=== PATIENT | female | born 2000 | race Caucasian/White ===

== ENCOUNTER 2024-12-29 05:40 | Day surgery (SDC) | payer OTHER ==
[~2024-12-29] VITALS: Ht 170.2 cm; Wt 100.0 kg
--- NOTE | ~2024-12-29 | OR ---
[facility] [address] [place] [address] Draft DATE OF OPERATION: 12/29/2024 SURGEON: Chapito Davis MD PREOPERATIVE DIAGNOSIS: Cervical intraepithelial neoplasia 3. POSTOPERATIVE DIAGNOSIS: Cervical intraepithelial neoplasia 3. PROCEDURE: Loop electrosurgical excision procedure, endocervical curettage. FINDINGS: Cervix with aceto-white epithelium after acetic acid application. ANESTHESIA: MAC plus local. MANUFACTURING INTERN: None. IV FLUIDS: 700 mL crystalloid. ESTIMATED BLOOD LOSS: 5 mL. URINE OUTPUT: 150 mL of urine. DRAINS: None. SPECIMENS: LEEP specimen and ECC specimen. COUNTS: Correct x2. PATIENT NAME: YOHANA LARSEN OPERATIVE REPORT DATE OF : 00 REPORT #: [id number] PHYSICIAN: CHAPITO DAVIS MD PCP: DONELL EVERETT MD REPORT IS CONFIDENTIAL AND NOT TO BE RELEASED WITHOUT AUTHORIZATION [facility] [address] [place] [address] Draft COMPLICATIONS: None apparent. TECHNIQUE IN DETAIL: With informed consent and negative hCG, the patient was taken to the operating room where she was given IV sedation. Her lower extremities were placed in low lithotomy position using short fin stirrups. She was prepped and draped in sterile fashion and time-out was performed per protocol. An insulated Floyd speculum was placed into the vagina to visualize the cervix. The patient was then given 0.25% Marcaine with epinephrine as a paracervical block. A total of 10 mL were injected circumferentially around the cervix. Vigorous acetic acid was then applied. Colposcope was used to visualize the cervix and identify all areas of aceto-white epithelium and the entire transformation zone. With the loop electrocautery at a power setting of 60 blunt cut, the LEEP specimen was removed. Endocervical curettage was performed as well. The bed of the cervix and the periphery of the ectocervical specimen were cauterized with the ball electrode. Good hemostasis was noted. Monsel's solution was placed. The speculum was removed. The patient underwent sterile I and O catheterization of her bladder for the above mentioned amount. DISPOSITION: The patient was taken to the recovery room in stable condition. Chapito Davis MD BB/MODL /[id number] Copies: ~ PATIENT NAME: YOHANA LARSEN OPERATIVE REPORT DATE OF : 00 REPORT #: [id number] PHYSICIAN: CHAPITO DAVIS MD PCP: DONELL EVERETT MD REPORT IS CONFIDENTIAL AND NOT TO BE RELEASED WITHOUT AUTHORIZATION
[~2024-12-29 05:40] MED LIST: ASHLYNA 0.15-01 EACH PO; LACTATED RINGER'S 1,000 ML IV SCH; SERTRALINE HCL100 MG PO
[2024-12-29 06:02] VITALS: BP 137/91
[2024-12-29] MEDS ORDERED: IBLOOD GLUCOSE TEST STRIP 1 EA TEST VI PRN ×2 (07:00→08:00)
[2024-12-29] MEDS ORDERED: LIDOCAINE HCL 1% 5 ML SDV INJ ONE (07:00)
[2024-12-29] MEDS ORDERED: DEXAMETHASONE SOD PHOS 4 MG/ML VIAL ONE (07:13)
[2024-12-29] MEDS ORDERED: MIDAZOLAM HCL 2 MG/2 ML VIAL ONE (07:13)
[2024-12-29] MEDS ORDERED: ACETAMINOPHEN 1,000 MG/100 ML VIAL ONE (07:13)
[2024-12-29] MEDS ORDERED: LIDOCAINE HCL 2% 5 ML SDV ONE (07:13)
[2024-12-29] MEDS ORDERED: fentaNYL citrate 100 MCG/2 ML VIAL ONE (07:13)
[2024-12-29] MEDS ORDERED: PROCHLORPERAZINE EDISYLATE 10 MG/2 ML VIAL IV PRN (08:00)
[2024-12-29] MEDS ORDERED: HYDROmorphone HCL 1 MG/ML SYR IV PRN (08:00)
[2024-12-29] MEDS ORDERED: fentaNYL citrate 50 MCG/ML SDV IV PRN (08:00)
[2024-12-29] MEDS ORDERED: NALOXONE HCL 0.4 MG SYR IV PRN (08:00)
[2024-12-29] MEDS ORDERED: KETOROLAC TROMETHAMINE 30 MG/ML VIAL ONE (08:11)
--- NOTE | 2024-12-29 08:23 | NUR ---
12/29/24 0823 Alba Freeman 0817: PT ARRIVES TO PACU AWAKE. SHE DENIES PAIN OR NAUEA. REPORT RECEIEVED FROM CAR REPAIR SUPERVISOR AND TYPESETTER PERFORATOR OPERATOR. EDE 0820: PT IS ABLE TO KEEP HER EYES OPEN.
[2024-12-29 08:45] VITALS: BP 107/65
[2024-12-29] MEDS ORDERED: HYDROCODONE/ACETA 5/325 TAB PO PRN (09:00)
--- NOTE | 2025-01-02 15:48 | PATH ---
[facility] [address] [place], [place] [address] Signed SPECIMEN(S): A ENDOCERVICAL CURETTINGS SPECIMEN(S): B LEEP SPECIMEN SOURCE: A. ENDOCERVICAL CURETTINGS B. LEEP CLINICAL HISTORY: 0 dysplasia of cervix FINAL PATHOLOGIC DIAGNOSIS: A. Endocervical curettings: - Benign endocervical epithelium, negative for dysplasia. - Mucoinflammatory debris. B. LEEP: - High-grade squamous intraepithelial lesion (CIN2-CIN3) involving of the blue-inked (endocervical) margin. D[facility] MICROSCOPIC EXAMINATION: Histologic sections of all submitted blocks are examined by light microscopy. These findings, together with the gross examination, support the pathologic diagnosis. GROSS DESCRIPTION: A. The specimen, labeled and designated "White K., ECC per requisition," is received in formalin and consists of a 1.6 x 1.2 x 0.3 cm aggregate of lorenzo-white tissue fragments admixed with clear mucus. The specimen is filtered through a bag and entirely submitted in cassette A1. B. The specimen, labeled and designated "Ana Paula K., LEEP specimen," is received in formalin and consists of a 3.4 x 2.6 x 0.6 cm cone-shaped biopsy of pink lorenzo soft tissue with a mucosal surface. No orientation is provided. The endocervical margin is inked blue and the deep/ectocervical margin is inked black. Specimen is serially sectioned revealing no discrete masses. Specimen is entirely submitted as follows: Cassette Summary: (B1) quadrant A (B2) quadrant B (B3) quadrant C (B4) quadrant D PATIENT NAME: YOHANA LARSEN PATHOLOGY DATE OF : 00 REPORT #: [id number] PHYSICIAN: HUNTER PATHOLOGY PCP: DONELL EVERETT MD REPORT IS CONFIDENTIAL AND NOT TO BE RELEASED WITHOUT AUTHORIZATION [facility] [address] [place], [place] [address] Signed AA (under the direct supervision of a pathologist) The Gross Description was prepared using a voice recognition system. The report was reviewed for accuracy; however, sound-alike word errors, addition and/or deletions may occur. If there is any question about this report, please contact Client Services. PERFORMING LABORATORY: Technical component was performed by [facility] [address] [place] [address] (CLIA# [id number]). Professional interpretation was performed by [facility] [address] [address] (CLIA#: [id number]) Professional interpretation was performed by [facility] [address] [address] (CLIA#: [id number]). Diagnostician: Jose Dubois MD Pathologist Electronically Signed 01/02/2025 Copies: ~ PATIENT NAME: YOHANA LARSEN PATHOLOGY DATE OF : 00 REPORT #: [id number] PHYSICIAN: HUNTRE WEAVER PCP: DONELL EVERETT MD REPORT IS CONFIDENTIAL AND NOT TO BE RELEASED WITHOUT AUTHORIZATION
== END 2024-12-29 08:56 | disposition home or self-care (01) ==
LOC: DS 05:40
PROVIDERS: ATTEND Obstetrics & Gynecology
PROC: 0UBC8ZX Excision of Cervix, Via Natural or Artificial Opening Endoscopic, Diagnostic (ICD-10-PCS; principal; 2024-12-29 07:30)
DX: D06.0 Carcinoma in situ of endocervix (principal); F41.9 Anxiety disorder, unspecified; Z87.891 Personal history of nicotine dependence; Z79.899 Other long term (current) drug therapy; Z88.1 Allergy status to other antibiotic agents
CPT/HCPCS: 00940; 88305; 88307; J0131; J1100; J1885; J2003; J2250; J2405; J2704; J3010; J7121